=== PATIENT | male | born 1995 | race African-American/Black ===

== ENCOUNTER 2017-05-06 16:29 | Emergency (ER) | payer OTHER ==
[~2017-05-06] VITALS: Ht 170.2 cm; Wt 108.4 kg
--- NOTE | ~2017-05-06 | CR281 ---
[facility] A Service of [facility] & [facility] RADIOLOGY TEXT RESULTS PATIENT: ALVARADO LOGAN JR LOCATION: [facility] : [birth year] UNIT #: [id number] AGE: [address]: Sammie Valenzuela SEX: M ORDER DR: [id number] [facility] [address] [place], [place] [address] [id number] E MR#: [id number] Acc #: [id number] NAME: ALVARADO LOGAN JR : 1995 SEX: M STUDY DATE/TIME: 05/06/2017 17:40 UNIT: [facility] ROOM: STUDY DESCRIPTION: CR Wrist Min 3 View Lt Attending Physician: Sammie Valenzuela Pa-C Ordering Physician: Patrick Manajrrez M.D. Primary Care Physician: Bry Fuentes M.D. MEDICAL IMAGING REPORT This report is preliminary unless electronic signature is present EXAM Left wrist 3 views HISTORY Fell landing on hands today, complains of bilateral wrist pain. FINDINGS Wrist evaluation in multiple projections shows normal mineralization of the bony structures about the wrist and satisfactory articular relationship of the radius and ulna to the proximal carpal row and of the distal carpal segments to the metacarpal bases. There is no indication of fracture or dislocation, and no soft tissue radiopaque foreign body is present. No congenital defects are apparent. IMPRESSION Normal wrist. Dictated by... Jailene Almendarez M.D. THIS IS AN ELECTRONICALLY VERIFIED REPORT Jailene Almendarez M.D. at 05/08/2017 3:15 PM LEATHA/dandy TD: 05/07/2017 10:57 JOB #: [id number] MEDICAL IMAGING REPORT Page 1 of 1 COPY
--- NOTE | ~2017-05-06 | CR282 ---
[facility] A Service of [facility] & [facility] RADIOLOGY TEXT RESULTS PATIENT: ALVARADO LOGAN JR LOCATION: [place] : [birth year] UNIT #: [id number] AGE: [address]: Sammie Valenzuela SEX: M ORDER DR: [id number] [facility] [address] [facility] [place], [place] [address] [id number] E MR#: [id number] Acc #: [id number] NAME: ALVARADO LOGAN JR : 1995 SEX: M STUDY DATE/TIME: 05/06/2017 17:42 UNIT: [facility] ROOM: STUDY DESCRIPTION: CR Wrist Min 3 View Rt Attending Physician: Sammie Valenzuela Pa-C Ordering Physician: Ed Alvaro Wolff M.D. Primary Care Physician: Bry Fuentes M.D. MEDICAL IMAGING REPORT This report is preliminary unless electronic signature is present EXAM Right wrist. HISTORY Bilateral wrist pain after falling and landing on hand today. FINDINGS Right wrist evaluation in multiple projections shows normal mineralization of the bony structures about the wrist and satisfactory articular relationship of the radius and ulna to the proximal carpal row and of the distal carpal segments to the metacarpal bases. There is no indication of fracture or dislocation, and no soft tissue radiopaque foreign body is present. No congenital defects are apparent. IMPRESSION Normal right wrist. Dictated by... Jailene Almendarez M.D. THIS IS AN ELECTRONICALLY VERIFIED REPORT Jailene Almendarez M.D. at 05/08/2017 3:15 PM LEATHA/leo TD: 05/07/2017 10:48 JOB #: [id number] MEDICAL IMAGING REPORT Page 1 of 1 COPY
== END 2017-05-06 19:00 | disposition home or self-care (01) ==
LOC: CFTX 16:29 → CED 16:29 → CFTX 17:00
DX: S63.502A Unspecified sprain of left wrist, initial encounter (principal); S63.501A Unspecified sprain of right wrist, initial encounter; F17.200 Nicotine dependence, unspecified, uncomplicated; V19.9XXA Pedal cyclist (driver) (passenger) injured in unspecified traffic accident, initial encounter; Y92.830 Public park as the place of occurrence of the external cause
CPT/HCPCS: 29125; 73110; 99283